=== PATIENT | male | born 1980 | race Caucasian/White ===

== ENCOUNTER 2017-08-22 07:53 | Outpatient (CLI) | payer OTHER ==
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
== END 2017-08-22 07:54 | disposition home or self-care (01) ==
LOC: SCSULT 07:53
PROVIDERS: ATTEND Family Medicine
DX: Z09 Encounter for follow-up examination after completed treatment for conditions other than malignant neoplasm (principal); Z90.81 Acquired absence of spleen
CPT/HCPCS: 76705